=== PATIENT | male | born 1940 | race Caucasian/White ===

== ENCOUNTER 2017-02-09 18:05 | Emergency (ER) | payer MEDICARE ==
--- NOTE | 2017-02-09 18:27 | Emergency Department Record ---
History of Present Illness - General Chief complaint: Male Urogenital Problem Stated complaint: UNABLE TO URINATE Time Seen by Provider: 02/09/17 18:20 Source: Patient Mode of Arrival: Wheelchair Limitations: No limitations - History of Present Illness Initial comments: 76 yo male presents to ED with a CC of urinary retention that has been worsening since last night. Patient reports that he has been using an antihistamine medication at home for recent congestion symptoms, reports the medication may have resulted in urinary retention. Patient denies dysuria symptoms, fevers, chills, or recent illness. Patient does report recent history of bladder cancer that he has seen Dr. Donaldson for recently. Patient denies anticoagulation use, or clots in the urine. MD Complaint: Other Onset/Timin -: Hour(s) Radiation: None Severity: Moderate Quality: Aching Consistency: Constant Improves with: None Worsens with: None New medication Reports: Denies other symptoms - Related Data Home Medications Medication Instructions Recorded Confirmed Last Taken Allopurinol [Allopurinol] 100 mg PO DAILY 04/27/14 02/09/17 1 Day Ago ~02/08/17 Amlodipine Besylate [Amlodipine 10 mg PO DAILY 04/27/14 02/09/17 1 Day Ago Besylate] ~02/08/17 Atorvastatin Calcium [Lipitor] 10 mg PO DAILY 04/27/14 02/09/17 1 Day Ago ~02/08/17 Hydrochlorothiazide 25 mg PO DAILY 04/27/14 02/09/17 1 Day Ago [Hydrochlorothiazide] ~02/08/17 Levothyroxine Sodium [Synthroid] 25 mcg PO DAILY 04/27/14 02/09/17 1 Day Ago ~02/08/17 Metformin HCl [Metformin HCl] 500 mg PO BID 04/27/14 02/09/17 1 Day Ago ~02/08/17 Metoprolol Tartrate [Metoprolol 100 mg PO BID 04/27/14 02/09/17 1 Day Ago Tartrate] ~02/08/17 Omeprazole [Omeprazole] 20 mg PO DAILY 04/27/14 02/09/17 1 Day Ago ~02/08/17 Losartan Potassium 50 mg PO BID 02/09/17 02/09/17 1 Day Ago ~02/08/17 Previous Rx's Medication Instructions Recorded Ciprofloxacin HCl [Cipro] 500 mg PO Q12HR #13 tablet 02/09/17 Fluconazole [Diflucan] 200 mg PO BID #27 tablet 02/09/17 Allergies Allergy/AdvReac Type Severity Reaction Status Date / Time No Known Drug Intolerances Allergy Unknown none Verified 02/09/17 18:33 Review of Systems Constitutional: Denies: Chills, Fever, Malaise, Night sweats Eyes: Denies: Eye discharge, Eye pain ENT: Reports: Congestion. Denies: Ear pain, Epistaxis Respiratory: Denies: Cough, Dyspnea Cardiovascular: Denies: Chest pain, Dyspnea on exertion Endocrine: Denies: Fatigue, Heat or cold intolerance Gastrointestinal: Reports: Abdominal pain. Denies: Nausea, Vomiting Genitourinary: Reports: Retention. Denies: Hematuria, Incontinence Musculoskeletal: Denies: Arthralgia, Back pain, Gout, Joint swelling Skin: Denies: Bruising, Change in color Neurological: Denies: Abnormal gait, Confusion, Headache, Tingling Psychiatric: Denies: Anxiety Hematological/Lymphatic: Denies: Anemia, Blood Clots Past Medical History - SOCIAL HISTORY Smoking Status: Former smoker - RESPIRATORY Hx Respiratory Disorders: No - CARDIOVASCULAR Hx Cardio Disorders: Yes Hx Cardiac Cath: Yes (2012) Hx Hypertension: Yes (on meds well controlled) Hx Irregular Heartbeat: Yes (afib on meds fairly well controlled) - NEURO Hx Neuro Disorders: No - GI Hx GI Disorders: Yes Hx Reflux: Yes - Hx Genitourinary Disorders: No Hx Bladder Problem: Yes (bladder tumor) Hx Prostate Problems: Yes - ENDOCRINE Hx Endocrine Disorders: Yes Hx Diabetes: Yes (blood [id number]) Hx Thyroid Disease: Yes - MUSCULOSKELETAL Hx Musculoskeletal Disorders: Yes Hx Arthritis: Yes Hx Gout: Yes - PSYCH Hx Psych Problems: No - HEMATOLOGY/ONCOLOGY Hx Hematology/Oncology Disorders: No Family Medical History Hx Diabetes: Brother/Sister, Grandparents Physical Exam - General General Appearance: Alert, Oriented x3, Cooperative Limitations: No limitations - Head Head exam: Atraumatic, Normocephalic, Normal inspection Head exam detail: negative: Abrasion, Contusion, Baron's sign, General tenderness, Hematoma, Laceration - Eye Eye exam: Normal appearance. negative: Conjunctival injection, Periorbital swelling, Periorbital tenderness, Scleral icterus - ENT Ear exam: negative: Auricular hematoma, Auricular trauma Nasal Exam: negative: Active bleeding, Discharge, Dried blood, Foreign body, Sinus tenderness Mouth exam: negative: Drooling, Laceration, Muffled voice, Tongue elevation - Neck Neck exam: Normal inspection. negative: Meningismus, Tenderness - Respiratory Respiratory exam: Normal lung sounds bilaterally. negative: Respiratory distress, Rhonchi, Stridor, Wheezes - Cardiovascular Cardiovascular Exam: Regular rate, Normal rhythm, Normal heart sounds - GI/Abdominal GI/Abdominal exam: Soft, Tenderness (TTP suprapubic region on examination). negative: Organomegaly, Pulsatile mass, Rebound, Rigid - Rectal Rectal exam: Deferred - exam: Deferred - Extremities Extremities exam: Normal inspection. negative: Calf tenderness, Pedal edema, Tenderness - Back Back exam: Denies: CVA tenderness (R), CVA tenderness (L) - Neurological Neurological exam: Alert, Normal gait, Oriented X3 - Psychiatric Psychiatric exam: Normal affect, Normal mood - Skin Skin exam: negative: Abrasion Type of lesion: negative: abrasion Course - Reevaluation(s) Reevaluation #1: 02/09/17 19:00 Labs reviewed, glucose 331, otherwise labs are grossly unremarkable for an acute process. UA pending. 02/09/17 19:01 Reevaluation #2: 02/09/17 19:21 UA reviewed: >1000 glucose WBCs TNTC 21-35 RBCs 1+ Bacteria 4+ Yeast Patient's bladder scan demonstrates 175-200 mL of Urine present, was able to urinate well to deliver UA sample without the need for flores catheterization. results were discussed with the patient and family, will initiate treatment with both Cipro as well as Diflucan with instructions to follow-up with Dr. Donaldson next week. Renal function appears unaffected. Patient appears stable for discharge at this time. 02/09/17 19:24 Medical Decision Making - Lab Data Result diagrams: 02/09/17 18:35 02/09/17 18:35 Disposition Disposition: Discharge Clinical Impression: Urinary retention UTI (urinary tract infection) Qualifiers: Urinary tract infection type: acute cystitis Hematuria presence: with hematuria Qualified Code(s): N30.01 - Acute cystitis with hematuria Disposition: Home, Self-Care Condition: (2) Stable Instructions: Urinary Retention in Men (ED) Additional Instructions: Return to ED if your symptoms worsen or if you have any concerns. Do not use any further antihistamine medications. Cipro and Diflucan as directed. Follow-up with Dr. Donaldson in 3-5 days as directed. Prescriptions: Ciprofloxacin HCl [Cipro] 500 mg PO Q12HR #13 tablet Fluconazole [Diflucan] 200 mg PO BID #27 tablet Forms: Patient Portal Access Time of Disposition: 19:27
[2017-02-09 18:41] LABS: BASO % 0.7 % (0-6); EOS % 2.7 % (0-6); GRAN % 67.8 % (47-80); LYMPH % 19.4 % (16-45); MEAN CELL VOLUME 85.8 fl (81-97); MEAN CORPUSCULAR HEMOGLOBIN 29.3 pg (27-33); MEAN CORPUSCULAR HGB CONC 34.2 g/dl (32-36); MEAN PLATELET VOLUME 8.6 fl (7.4-10.4); MONO % 9.4 % (0-9); PLATELET COUNT 289 K/uL (130-400); RED BLOOD COUNT 4.43 M/uL (4.40-5.70); RED CELL DISTRIBUTION WIDTH 12.7 % (11.5-14.5); WHITE BLOOD COUNT W/O DIFF 11.7 K/uL (4.2-12.2)
[2017-02-09 18:52] LABS: ALB/GLOB RATIO 1.1 (1.1-1.8); ALBUMIN 4.1 gm/dL (3.5-5.0); ALKALINE PHOSPHATASE 151 U/L (38-126); ALT/SGPT 50 U/L (21-72); ANION GAP 7.4 (7-16); AST/SGOT 35 U/L (17-59); BLOOD UREA NITROGEN 18 mg/dL (9-20); CARBON DIOXIDE 24.6 mmol/L (22-30); EST GLOMERULAR FILTRATION RATE > 60 ml/min; GLUCOSE,RANDOM 331 mg/dL (70-110); TOTAL PROTEIN 7.7 gm/dL (6.3-8.2)
[2017-02-09 19:03] LABS: URINE APPEARANCE CLEAR; URINE BILIRUBIN NEGATIVE (NEGATIVE); URINE BLOOD MODERATE (NEGATIVE); URINE COLOR YELLOW; URINE KETONE NEGATIVE (NEGATIVE); URINE LEUKOCYTE ESTERASE LARGE (NEGATIVE); URINE NITRITE NEGATIVE (NEGATIVE); URINE PROTEIN TRACE (NEGATIVE); URINE UROBILINOGEN 0.2 E.U./dL (0.20 - 1.00)
[2017-02-09 19:12] LABS: URINE EPITHELIAL CELLS 0 - 2 (FEW); URINE GLUCOSE (UA) >=1000 mg/dL (NEGATIVE); URINE RBC 21 - 35 (NONE SEEN)
[2017-02-09 19:13] LABS: URINE BACTERIA 1+ FEW; URINE YEAST 4+
[2017-02-09] MEDS ORDERED: CIPROFLOXACIN HCL 500 MG TABLET PO ONE (19:25)
[2017-02-09] MEDS ORDERED: FLUCONAZOLE 100 MG TABLET PO ONE (19:25)
== END 2017-02-09 19:34 | disposition home or self-care (01) ==
LOC: ER 18:05
DX: N39.0 Urinary tract infection, site not specified (principal); C80.1 Malignant (primary) neoplasm, unspecified; I48.0 Paroxysmal atrial fibrillation; Z79.01 Long term (current) use of anticoagulants; E11.9 Type 2 diabetes mellitus without complications; I10 Essential (primary) hypertension
CPT/HCPCS: 51798; 80053; 81001; 85025; 99283; 99284